=== PATIENT | male | born 1970 | race Two or more races ===

== ENCOUNTER 2016-09-23 08:50 | Emergency (ER) | payer SELFPAY ==
[~2016-09-23] VITALS: Ht 180.3 cm; Wt 92.5 kg
[2016-09-23 08:55] VITALS: BP 128/82
--- NOTE | 2016-09-23 09:49 | NUR ---
Patient discharged to home in stable condition. Written and verbal after care instructions given. Patient verbalizes understanding of instruction.
== END 2016-09-23 09:48 | disposition home or self-care (01) ==
LOC: ER 08:54
DX: A46 Erysipelas (principal); F32.9 Major depressive disorder, single episode, unspecified
CPT/HCPCS: 99283; A4606; Z7610